=== PATIENT | female | born 2000 | race Two or more races ===

== ENCOUNTER → 2024-10-14 | Emergency (ER) | payer OTHER ==
[~2024-10-14] VITALS: Ht 170.2 cm; Wt 81.6 kg
[~2024-10-14] MED LIST: 0.9 % SODIUM CHLORIDE 1,000 ML IV ONE; FAMOtidine 10 MG/ML (4ML VIAL) IV ONE; HYOSCYAMINE SULFATE 0.125 MG TAB.SUBL SL ONE; ONDANSETRON HCL 2 MG/ML VIAL IV ONE
== END | disposition left against medical advice (07) ==
LOC: ER 08:15
DX: R10.13 Epigastric pain (principal)

== ENCOUNTER → 2024-10-14 | Emergency (ER) | payer OTHER ==
[~2024-10-14] VITALS: Ht 170.2 cm; Wt 72.6 kg
== END | disposition left against medical advice (07) ==
LOC: ER 11:49
DX: Z53.21 Procedure and treatment not carried out due to patient leaving prior to being seen by health care provider (principal)